=== PATIENT | female | born 1965 | race Caucasian/White ===

== ENCOUNTER → 2016-10-07 | Outpatient (CLI) | payer BC ==
--- NOTE | 2016-10-07 14:24 | MAMMOGRAPHY REPORT ---
BILATERAL DIGITAL SCREENING MAMMOGRAM TOMOSYNTHESIS WITH CAD: 10/07/2016 CLINICAL HISTORY: Routine screening. Patient has no complaints. TECHNIQUE: Breast tomosynthesis in addition to standard 2D mammography was performed. Current study was also evaluated with a Computer Aided Detection (CAD) system. COMPARISON: Comparison is made to exams dated: 05/22/2015 mammogram, 05/07/2014 mammogram, 03/27/2013 mammogram, 03/08/2012 mammogram, 07/29/2010 mammogram - [facility], and 09/25/2008. BREAST COMPOSITION: There are scattered areas of fibroglandular density in both breasts. FINDINGS: No suspicious masses, calcifications, or areas of architectural distortion are noted in ei ther breast. There has been no significant interval change compared to prior exams. IMPRESSION: ACR BI-RADS CATEGORY 1: NEGATIVE There is no mammographic evidence of malignancy. A 1 year screening mammogram is recommended. The pa tient will receive written notification of the results. Approximately 10% of breast cancers are not detected with mammography. A negative mammographic report should not delay biopsy if a clinically suggestive mass is present. Lizzy Fishman M.D. ah/:10/07/2016 08:00:40 Medical Translator: Celeste MONTILLA(Yeny)(M), [facility] letter sent: Normal 1/2 BI-RADS Code: ACR BI-RADS Category 1: Negative
== END | disposition home or self-care (01) ==
LOC: C.MAMM 07:34
PROVIDERS: ATTEND Family Medicine
DX: Z12.31 Encounter for screening mammogram for malignant neoplasm of breast (principal)

== ENCOUNTER → 2017-07-21 | Outpatient (CLI) | payer BC, OTHER ==
--- NOTE | 2017-07-21 16:05 | DIAGNOSTIC IMAGING REPORT ---
L FOOT MIN 3 VIEWS CLINICAL HISTORY: ACUTE LEFT FOOT PAIN pain COMPARISON: None. DISCUSSION: Mild hallux valgus configuration to the great toe. Heel spur. No evidence for acute bony pathology. No evidence for fracture or dislocation. There is no evidence for soft tissue swelling. IMPRESSION: 1. Small heel spur. 2. Mild bunion distal first metatarsal with mild hallux valgus configuration. 3. No acute process. The above report was generated using voice recognition software. It may contain grammatical, syntax or spelling errors. Electronically signed by: Isaak Caruso M.D. 07/21/2017 4:03 PM Dictated Date/Time: 07/21/2017 4:03 PM
== END | disposition home or self-care (01) ==
LOC: C.RDSM 15:14
PROVIDERS: ATTEND Physician Assistant
DX: M79.672 Pain in left foot (principal)

== ENCOUNTER → 2017-12-25 | Outpatient (CLI) | payer OTHER ==
--- NOTE | 2017-12-25 10:09 | DIAGNOSTIC IMAGING REPORT ---
R FINGER(S) MIN 2 VIEWS HISTORY: 52 years-old Female RIGHT 4TH DIGIT PAIN acute pain of the right fourth finger COMPARISON: None available TECHNIQUE: 3 views of the right fingers with attention to the fourth digit FINDINGS: No acute fracture, dislocation or significant degenerative changes. There is mild soft tissue swelling of the fourth digit, most pronounced surrounding the proximal phalanx. No opaque foreign body. IMPRESSION: Mild soft tissue swelling without fracture. The above report was generated using voice recognition software. It may contain grammatical, syntax or spelling errors. Electronically signed by: Bal Thao M.D. 12/25/2017 10:08 AM Dictated Date/Time: 12/25/2017 10:07 AM
== END | disposition home or self-care (01) ==
LOC: C.RDSM 11:22
PROVIDERS: ATTEND Physician Assistant
DX: M79.644 Pain in right finger(s) (principal)